=== PATIENT | female | born 1970 | race Caucasian/White ===

== ENCOUNTER 2020-04-20 15:23 | Outpatient (REF) | payer MEDICARE, MEDICAID, SELFPAY ==
[2020-04-20 17:25] LABS: Basophils Percent Auto 0.6 % (0-2); Eosinophils Absolute Auto 0.1 X10*3/uL (0.0-0.4); Eosinophils Percent Auto 0.9 % (0-4); Hematocrit 38.5 % (37-47); Hemoglobin 12.6 g/dl (12.0-16.0); Imm Gran Abs Auto 0.02 X10*3/uL (0.00-0.03); Imm Gran Pct Auto 0.3 % (0.0-0.4); Lymphocytes Absolute Auto 1.5 X10*3/uL (1.2-4.9); Lymphocytes Percent Auto 22.8 % (20-40); MANUAL DIFF FLAG NO; Mean Corpuscular HGB Conc 32.7 g/dl (31.0-35.0); Mean Corpuscular Hemoglobin 30.7 pg (27.0-33.0); Mean Corpuscular Volume 93.7 fL (80-98); Mean Platelet Volume 10.2 fL (9.4-12.3); Monocytes Absolute Auto 0.5 X10*3/uL (0.1-1.2); Monocytes Percent Auto 8.3 % (2-11); Neutrophils Absolute Auto 4.3 X10*3/uL (2.0-8.3); Neutrophils Percent Auto 67.1 % (45-73); Platelet Count 295 X10*3/uL (160-400); Red Blood Count 4.11 X10*6/uL (4.20-5.50); Red Cell Distribution Width 12.6 % (11.0-16.0); White Blood Count 6.4 X10*3/uL (4.8-10.8)
[2020-04-20 18:00] LABS: Alanine Aminotransferase 20 U/L (0-31); Albumin Level 4.2 g/dL (3.5-5.0); Alkaline Phosphatase 86 U/L (39-117); Anion Gap 12 (12-20); Aspartate Amino Transferase 14 U/L (5-31); Bilirubin Total 0.5 mg/dL (0.0-1.0); Blood Urea Nitrogen 16 mg/dL (9-16); Calcium 9.3 mg/dL (8.4-10.2); Carbon Dioxide 28 mmol/L (22-29); Chloride 104 mmol/L (96-108); Cholesterol 164 mg/dL; Estimated Glomerular Filt Rate > 60; Glucose Random 82 mg/dL (60-115); Potassium 4.2 mmol/l (3.3-5.1); Sodium 140 mmol/L (135-145); Total Protein 7.2 g/dL (6.5-8.0)
[2020-04-20 18:21] LABS: Thyroid Stimulating Hormone 1.39 uIU/mL (0.32-4.0); Vitamin D 25-OH Total 31.5 ng/mL (>30)
[2020-04-20 18:30] LABS: Vitamin B12 427 pg/mL (200-900)
== END 2020-04-20 15:24 | disposition home or self-care (01) ==
LOC: HO.LAB 15:23
PROVIDERS: PCP Internal Medicine; Visit Provider Internal Medicine
DX: E28.2 Polycystic ovarian syndrome (principal); E03.9 Hypothyroidism, unspecified; R25.2 Cramp and spasm
CPT/HCPCS: 36415; 80053; 82306; 82465; 82607; 84439; 84443; 85025

== ENCOUNTER 2020-07-19 13:07 | Outpatient (REF) | payer MEDICARE, MEDICAID, SELFPAY ==
[2020-07-19 14:08] LABS: MANUAL DIFF FLAG NO
[2020-07-19 14:14] LABS: Basophils Percent Auto 0.7 % (0-2); Eosinophils Percent Auto 0.7 % (0-4); Hematocrit 38.2 % (37-47); Hemoglobin 12.9 g/dl (12.0-16.0); Imm Gran Abs Auto 0.02 X10*3/uL (0.00-0.03); Imm Gran Pct Auto 0.4 % (0.0-0.4); Lymphocytes Absolute Auto 1.1 X10*3/uL (1.2-4.9); Lymphocytes Percent Auto 19.7 % (20-40); Mean Corpuscular HGB Conc 33.8 g/dl (31.0-35.0); Mean Corpuscular Hemoglobin 31.4 pg (27.0-33.0); Mean Corpuscular Volume 92.9 fL (80-98); Mean Platelet Volume 10.2 fL (9.4-12.3); Monocytes Absolute Auto 0.4 X10*3/uL (0.1-1.2); Monocytes Percent Auto 6.8 % (2-11); Neutrophils Absolute Auto 3.9 X10*3/uL (2.0-8.3); Neutrophils Percent Auto 71.7 % (45-73); Platelet Count 279 X10*3/uL (160-400); Red Blood Count 4.11 X10*6/uL (4.20-5.50); Red Cell Distribution Width 12.6 % (11.0-16.0); White Blood Count 5.4 X10*3/uL (4.8-10.8)
[2020-07-19 14:40] LABS: Alanine Aminotransferase 17 U/L (0-31); Albumin Level 4.1 g/dL (3.5-5.0); Alkaline Phosphatase 71 U/L (39-117); Anion Gap 13 (12-20); Aspartate Amino Transferase 15 U/L (5-31); Bilirubin Total 0.4 mg/dL (0.0-1.0); Blood Urea Nitrogen 16 mg/dL (9-16); Calcium 8.9 mg/dL (8.4-10.2); Carbon Dioxide 26 mmol/L (22-29); Chloride 102 mmol/L (96-108); Estimated Glomerular Filt Rate > 60; Glucose Random 89 mg/dL (60-115); Potassium 4.4 mmol/L (3.3-5.1); Sodium 137 mmol/L (135-145)
[2020-07-19 14:53] LABS: Free T4 (Free Thyroxine) 0.92 ng/dL (0.71-1.85); Thyroid Stimulating Hormone 2.09 uIU/mL (0.32-4.0)
== END 2020-07-19 13:08 | disposition home or self-care (01) ==
LOC: HO.10HDL 13:07
PROVIDERS: Visit Provider Internal Medicine
DX: E28.2 Polycystic ovarian syndrome (principal); E03.9 Hypothyroidism, unspecified; R63.5 Abnormal weight gain
CPT/HCPCS: 36415; 80053; 84439; 84443; 85025

== ENCOUNTER 2020-11-16 12:52 | Outpatient (REF) | payer MEDICARE, MEDICAID, SELFPAY ==
[2020-11-16 13:41] LABS: MANUAL DIFF FLAG NO
[2020-11-16 13:59] LABS: Basophils Percent Auto 0.6 % (0-2); Eosinophils Absolute Auto 0.1 X10*3/uL (0.0-0.4); Eosinophils Percent Auto 0.8 % (0-4); Hematocrit 39.1 % (37-47); Hemoglobin 12.7 g/dl (12.0-16.0); Imm Gran Abs Auto 0.02 X10*3/uL (0.00-0.03); Imm Gran Pct Auto 0.3 % (0.0-0.4); Lymphocytes Absolute Auto 1.5 X10*3/uL (1.2-4.9); Lymphocytes Percent Auto 23.3 % (20-40); Mean Corpuscular HGB Conc 32.5 g/dl (31.0-35.0); Mean Corpuscular Hemoglobin 30.3 pg (27.0-33.0); Mean Corpuscular Volume 93.3 fL (80-98); Mean Platelet Volume 10.1 fL (9.4-12.3); Monocytes Absolute Auto 0.5 X10*3/uL (0.1-1.2); Monocytes Percent Auto 7.5 % (2-11); Neutrophils Absolute Auto 4.2 X10*3/uL (2.0-8.3); Neutrophils Percent Auto 67.5 % (45-73); Platelet Count 295 X10*3/uL (160-400); Red Blood Count 4.19 X10*6/uL (4.20-5.50); Red Cell Distribution Width 12.8 % (11.0-16.0); White Blood Count 6.3 X10*3/uL (4.8-10.8)
[2020-11-16 14:35] LABS: Alanine Aminotransferase 29 U/L (0-31); Albumin Level 4.1 g/dL (3.5-5.0); Alkaline Phosphatase 77 U/L (39-117); Anion Gap 12 (12-20); Aspartate Amino Transferase 25 U/L (5-31); Bilirubin Total 0.5 mg/dL (0.0-1.0); Blood Urea Nitrogen 13 mg/dL (9-16); Calcium 9.6 mg/dL (8.4-10.2); Carbon Dioxide 25 mmol/L (22-29); Chloride 106 mmol/L (96-108); Estimated Glomerular Filt Rate > 60; Glucose Random 90 mg/dL (60-115); Potassium 4.4 mmol/L (3.3-5.1); Sodium 139 mmol/L (135-145); Total Protein 7.2 g/dL (6.5-8.0)
[2020-11-16 14:42] LABS: Free T4 (Free Thyroxine) 1.02 ng/dL (0.71-1.85)
== END 2020-11-16 12:53 | disposition home or self-care (01) ==
LOC: HO.10HDL 12:52
PROVIDERS: PCP Internal Medicine; Visit Provider Internal Medicine
DX: R63.5 Abnormal weight gain (principal); E03.9 Hypothyroidism, unspecified; E28.2 Polycystic ovarian syndrome
CPT/HCPCS: 36415; 80053; 84439; 84443; 85025

== ENCOUNTER 2021-06-06 12:57 | Outpatient (REF) | payer MEDICARE, MEDICAID, SELFPAY ==
[2021-06-06 13:49] LABS: MANUAL DIFF FLAG NO
[2021-06-06 13:57] LABS: Basophils Percent Auto 0.6 % (0-2); Eosinophils Percent Auto 0.6 % (0-4); Hematocrit 38.4 % (37.0-47.0); Hemoglobin 12.3 g/dl (12.0-16.0); Imm Gran Abs Auto 0.03 X10*3/uL (0.00-0.03); Imm Gran Pct Auto 0.4 % (0.0-0.4); Lymphocytes Absolute Auto 1.1 X10*3/uL (1.2-4.9); Lymphocytes Percent Auto 16.5 % (20-40); Mean Corpuscular Hemoglobin 29.7 pg (27.0-33.0); Mean Corpuscular Volume 92.8 fL (80.0-98.0); Mean Platelet Volume 10.1 fL (9.4-12.3); Monocytes Absolute Auto 0.5 X10*3/uL (0.1-1.2); Monocytes Percent Auto 7.5 % (2-11); Neutrophils Absolute Auto 5.1 x10*3/uL (2.0-8.3); Neutrophils Percent Auto 74.4 % (45-73); Platelet Count 298 X10*3/uL (160-400); Red Blood Count 4.14 X10*6/uL (4.20-5.50); Red Cell Distribution Width 12.4 % (11.0-16.0); White Blood Count 6.8 X10*3/uL (4.8-10.8)
[2021-06-06 14:15] LABS: Estimated Average Glucose 100 mg/dL; Hemoglobin A1c % 5.1 %
[2021-06-06 14:28] LABS: Alanine Aminotransferase 10 U/L (0-31); Albumin Level 3.9 g/dL (3.5-5.0); Alkaline Phosphatase 77 U/L (39-117); Anion Gap 11 (12-20); Aspartate Amino Transferase 14 U/L (5-31); Bilirubin Total 0.5 mg/dL (0.0-1.0); Blood Urea Nitrogen 13 mg/dL (9-16); Calcium 9.4 mg/dL (8.4-10.2); Carbon Dioxide 28 mmol/L (22-29); Chloride 103 mmol/L (96-108); Cholesterol 185 mg/dL; Estimated Glomerular Filt Rate > 60; Glucose Random 87 mg/dL (60-115); Potassium 4.1 mmol/L (3.3-5.1); Sodium 138 mmol/L (135-145); Total Protein 6.9 g/dL (6.5-8.0)
[2021-06-06 14:39] LABS: Free T4 (Free Thyroxine) 0.91 ng/dL (0.71-1.85); Thyroid Stimulating Hormone 2.24 uIU/mL (0.32-4.0); Vitamin D 25-OH Total 24.4 ng/mL (>30)
== END 2021-06-06 12:58 | disposition home or self-care (01) ==
LOC: HO.10HDL 12:57
PROVIDERS: Visit Provider Internal Medicine
DX: E03.9 Hypothyroidism, unspecified (principal); E28.2 Polycystic ovarian syndrome; G80.9 Cerebral palsy, unspecified
CPT/HCPCS: 36415; 80053; 82306; 82465; 83036; 84439; 84443; 85025

== ENCOUNTER 2022-01-25 13:43 | Outpatient (REF) | payer MEDICARE, MEDICAID, SELFPAY ==
[2022-01-25 14:02] LABS: MANUAL DIFF FLAG NO
[2022-01-25 14:24] LABS: Basophils Percent Auto 0.5 % (0-2); Eosinophils Absolute Auto 0.1 X10*3/uL (0.0-0.4); Hematocrit 38.8 % (37.0-47.0); Imm Gran Abs Auto 0.02 X10*3/uL (0.00-0.03); Imm Gran Pct Auto 0.3 % (0.0-0.4); Lymphocytes Absolute Auto 1.5 X10*3/uL (1.2-4.9); Lymphocytes Percent Auto 24.7 % (20-40); Mean Corpuscular HGB Conc 33.5 g/dl (31.0-35.0); Mean Corpuscular Hemoglobin 30.6 pg (27.0-33.0); Mean Corpuscular Volume 91.3 fL (80.0-98.0); Mean Platelet Volume 10.1 fL (9.4-12.3); Monocytes Absolute Auto 0.4 X10*3/uL (0.1-1.2); Monocytes Percent Auto 6.9 % (2-11); Neutrophils Percent Auto 66.6 % (45-73); Platelet Count 312 X10*3/uL (160-400); Red Blood Count 4.25 X10*6/uL (4.20-5.50); Red Cell Distribution Width 12.8 % (11.0-16.0); White Blood Count 5.9 X10*3/uL (4.8-10.8)
[2022-01-25 14:38] LABS: Alanine Aminotransferase 10 U/L (0-31); Albumin Level 4.2 g/dL (3.5-5.0); Alkaline Phosphatase 77 U/L (39-117); Anion Gap 14 (12-20); Aspartate Amino Transferase 13 U/L (5-31); Bilirubin Total 0.4 mg/dL (0.0-1.0); Blood Urea Nitrogen 15 mg/dL (9-16); Calcium 9.1 mg/dL (8.4-10.2); Carbon Dioxide 25 mmol/L (22-29); Chloride 104 mmol/L (96-108); Cholesterol 194 mg/dL; Estimated Glomerular Filt Rate > 60; Glucose Fasting 100 mg/dL (60-99); Potassium 3.9 mmol/L (3.3-5.1); Sodium 139 mmol/L (135-145); Total Protein 7.3 g/dL (6.5-8.0)
[2022-01-25 14:55] LABS: Free T4 (Free Thyroxine) 1.12 ng/dL (0.71-1.85); Thyroid Stimulating Hormone 2.22 uIU/mL (0.32-4.0)
== END 2022-01-25 13:44 | disposition home or self-care (01) ==
LOC: HO.LAB 13:43
PROVIDERS: PCP Internal Medicine; Visit Provider Internal Medicine
DX: E28.2 Polycystic ovarian syndrome (principal); E03.9 Hypothyroidism, unspecified; E55.9 Vitamin D deficiency, unspecified; G80.9 Cerebral palsy, unspecified
CPT/HCPCS: 36415; 80053; 82465; 84439; 84443; 85025

== ENCOUNTER 2022-06-26 12:33 | Outpatient (REF) | payer MEDICARE, MEDICAID, SELFPAY ==
[2022-06-26 13:43] LABS: MANUAL DIFF FLAG NO
[2022-06-26 13:47] LABS: Basophils Absolute Auto 0.1 X10*3/uL (0.0-0.2); Basophils Percent Auto 0.7 % (0-2); Eosinophils Absolute Auto 0.1 X10*3/uL (0.0-0.4); Eosinophils Percent Auto 1.7 % (0-4); Hematocrit 36.5 % (37.0-47.0); Imm Gran Abs Auto 0.06 X10*3/uL (0.00-0.03); Imm Gran Pct Auto 0.8 % (0.0-0.4); Lymphocytes Absolute Auto 1.7 X10*3/uL (1.2-4.9); Lymphocytes Percent Auto 23.4 % (20-40); Mean Corpuscular HGB Conc 32.9 g/dl (31.0-35.0); Mean Corpuscular Hemoglobin 30.6 pg (27.0-33.0); Mean Corpuscular Volume 93.1 fL (80.0-98.0); Mean Platelet Volume 9.8 fL (9.4-12.3); Monocytes Absolute Auto 0.6 X10*3/uL (0.1-1.2); Monocytes Percent Auto 7.9 % (2-11); Neutrophils Absolute Auto 4.8 x10*3/uL (2.0-8.3); Neutrophils Percent Auto 65.5 % (45-73); Platelet Count 331 X10*3/uL (160-400); Red Blood Count 3.92 X10*6/uL (4.20-5.50); White Blood Count 7.3 X10*3/uL (4.8-10.8)
[2022-06-26 14:15] LABS: Alanine Aminotransferase 17 U/L (0-31); Albumin Level 3.6 g/dL (3.5-5.0); Alkaline Phosphatase 76 U/L (39-117); Anion Gap 9 (12-20); Aspartate Amino Transferase 20 U/L (5-31); Bilirubin Total 0.4 mg/dL (0.0-1.0); Blood Urea Nitrogen 10 mg/dL (9-16); Calcium 8.7 mg/dL (8.4-10.2); Carbon Dioxide 29 mmol/L (22-29); Chloride 105 mmol/L (96-108); Estimated Glomerular Filt Rate > 60; Glucose Random 102 mg/dL (60-115); Potassium 4.1 mmol/L (3.3-5.1); Sodium 139 mmol/L (135-145); Total Protein 6.3 g/dL (6.5-8.0)
[2022-06-26 14:30] LABS: Free T4 (Free Thyroxine) 0.99 ng/dL (0.71-1.85); Thyroid Stimulating Hormone 1.94 uIU/mL (0.32-4.0); Vitamin D 25-OH Total 24.7 ng/mL (>30)
== END 2022-06-26 12:34 | disposition home or self-care (01) ==
LOC: HO.10HDL 12:33
PROVIDERS: Visit Provider Internal Medicine
DX: E28.2 Polycystic ovarian syndrome (principal); E03.9 Hypothyroidism, unspecified; E55.9 Vitamin D deficiency, unspecified; R21 Rash and other nonspecific skin eruption; F31.9 Bipolar disorder, unspecified
CPT/HCPCS: 36415; 80053; 82306; 84439; 84443; 85025

== ENCOUNTER 2023-12-02 10:19 | Outpatient (REF) | payer MEDICARE, MEDICAID, SELFPAY ==
[2023-12-02 10:41] LABS: MANUAL DIFF FLAG NO
[2023-12-02 11:07] LABS: Basophils Absolute Auto 0.1 X10*3/uL (0.0-0.2); Eosinophils Absolute Auto 0.1 X10*3/uL (0.0-0.4); Eosinophils Percent Auto 1.6 % (0-4); Hematocrit 37.8 % (37.0-47.0); Hemoglobin 12.6 g/dl (12.0-16.0); Imm Gran Abs Auto 0.03 X10*3/uL (0.00-0.03); Imm Gran Pct Auto 0.5 % (0.0-0.4); Lymphocytes Absolute Auto 1.7 X10*3/uL (1.2-4.9); Lymphocytes Percent Auto 27.4 % (20-40); Mean Corpuscular HGB Conc 33.3 g/dl (31.0-35.0); Mean Corpuscular Hemoglobin 29.7 pg (27.0-33.0); Mean Corpuscular Volume 89.2 fL (80.0-98.0); Mean Platelet Volume 9.8 fL (9.4-12.3); Monocytes Absolute Auto 0.4 X10*3/uL (0.1-1.2); Monocytes Percent Auto 6.8 % (2-11); Neutrophils Absolute Auto 3.9 x10*3/uL (2.0-8.3); Neutrophils Percent Auto 62.7 % (45-73); Platelet Count 360 X10*3/uL (160-400); Red Blood Count 4.24 X10*6/uL (4.20-5.50); Red Cell Distribution Width 13.6 % (11.0-16.0); White Blood Count 6.2 X10*3/uL (4.8-10.8)
[2023-12-02 12:35] LABS: Alanine Aminotransferase 15 U/L (0-31); Alkaline Phosphatase 96 U/L (39-117); Anion Gap 11 (12-20); Aspartate Amino Transferase 13 U/L (5-31); Bilirubin Total 0.4 mg/dL (0.0-1.0); Blood Urea Nitrogen 12 mg/dL (9-16); Calcium 9.4 mg/dL (8.4-10.2); Carbon Dioxide 27 mmol/L (22-29); Chloride 105 mmol/L (96-108); Cholesterol 194 mg/dL (<200); Estimated Glomerular Filt Rate > 60; Glucose Random 85 mg/dL (60-115); Potassium 3.9 mmol/L (3.3-5.1); Sodium 139 mmol/L (135-145); Total Protein 7.6 g/dL (6.5-8.0)
[2023-12-02 12:39] LABS: Free T4 (Free Thyroxine) 0.97 ng/dL (0.71-1.85); Thyroid Stimulating Hormone 2.59 uIU/mL (0.32-4.0); Vitamin D 25-OH Total 46.7 ng/mL (>30)
== END 2023-12-02 10:20 | disposition home or self-care (01) ==
LOC: HO.LAB 10:19
PROVIDERS: PCP Internal Medicine; Visit Provider Internal Medicine
DX: E55.9 Vitamin D deficiency, unspecified (principal); E03.9 Hypothyroidism, unspecified; E28.2 Polycystic ovarian syndrome
CPT/HCPCS: 36415; 80053; 82306; 82465; 84439; 84443; 85025

== ENCOUNTER 2024-02-10 10:50 | Outpatient (REF) | payer MEDICARE, MEDICAID, SELFPAY | END 2024-02-10 10:51 | disposition home or self-care (01) | LOC: HO.MAMMO 10:50 | PROVIDERS: PCP Internal Medicine; Visit Provider Internal Medicine | DX: Z13.89 Encounter for screening for other disorder (principal) ==

== ENCOUNTER 2024-03-24 12:46 | Outpatient (REF) | payer MEDICARE, MEDICAID, SELFPAY ==
--- NOTE | ~2024-03-24 | XR_ITS ---
EXAMINATION: XRAY ORBITS CLINICAL INFORMATION: PRE-MRI , UNKNOWN SURGERY COMPARISON: None. TECHNIQUE: 2 views of the orbits FINDINGS: No radiopaque foreign body in the orbits. NO fracture XR/XR pre mri screening IMPRESSION: No radiopaque foreign body in the orbits. Electronically signed by: Pop Smith MD 03/25/2024 01:06 PM [facility] [place]
== END 2024-03-24 12:47 | disposition home or self-care (01) ==
LOC: HO.MRI 12:46
PROVIDERS: PCP Internal Medicine; Visit Provider Psychiatry & Neurology Neurology
DX: G83.89 Other specified paralytic syndromes (principal)
CPT/HCPCS: 70551; 72141

== ENCOUNTER 2024-03-25 15:33 | Outpatient (REF) | payer MEDICARE, MEDICAID, SELFPAY ==
--- NOTE | ~2024-03-25 | MM_ITS ---
EXAMINATION: MM SCREENING DIGITAL BREAST TOMOSYNTHESIS, BILATERAL CLINICAL INFORMATION: Screening. Asymptomatic. COMPARISON: Mammography: Baseline. TECHNIQUE: Digital breast mammography with tomosynthesis is performed in both the craniocaudal and mediolateral oblique views along with computer-aided detection (CAD). FINDINGS: There are scattered areas of fibroglandular density (ACR BI-RADS breast composition Category b). There are no significant masses, abnormal calcifications, or other abnormalities. MM/MM tomosynthesis screening BI IMPRESSION: No mammographic evidence of malignancy. ASSESSMENT: BI-RADS BI-RADS 1 - Negative RECOMMENDATION: Routine annual mammography screening. 1 year F/U This examination should not preclude the clinical evaluation of a suspicious palpable abnormality. This patient's information was entered into a reminder system with a target due date for their next mammogram. Electronically signed by: Windy Richards DO 03/31/2024 03:32 PM [facility] [place]
== END 2024-03-25 15:34 | disposition home or self-care (01) ==
LOC: HO.MAMMO 15:33
PROVIDERS: PCP Internal Medicine; Visit Provider Internal Medicine
DX: Z12.31 Encounter for screening mammogram for malignant neoplasm of breast (principal)
CPT/HCPCS: 77063; 77067

== ENCOUNTER → 2024-03-25 16:15 | Outpatient (BNV) | payer MEDICARE, MEDICAID, SELFPAY | PROVIDERS: PCP Internal Medicine; Visit Provider Internal Medicine | DX: Z12.31 Encounter for screening mammogram for malignant neoplasm of breast (principal) | CPT/HCPCS: 77063; 77067 ==

== ENCOUNTER 2024-08-25 08:43 | Outpatient (AMB) | payer MEDICARE, MEDICAID, SELFPAY ==
--- NOTE | 2024-08-25 08:42 | A.OFFPC_ITS ---
Vital Signs 08/25/24 09:03 Height 4 ft 10 in Weight 76.204 kg BMI 35.1 BP 112/64 Respiration 14 Pulse 85 Pulse Source Pulse Oximeter Temp 97.9 F Temp Source Temporal Artery Scan Pulse Oximetry (%) 97 Oxygen Delivery Method Room Air Intake Visit Reasons: Routine Licensed Clinical Social Worker Required: No Accompanied by: Other Relationship Allergies No Known Allergies Allergy (Verified 08/25/24 08:52) Tobacco use date assessed: 08/25/24 Dental Screening Dental Screen Date: 08/25/24 Did you have a dental visit in the last 12 months?: Yes Did you have a dental problem in the last 6 months where you did not have access to dental care?: No Was dental information given to patient?: Patient has dentist HPI HPI Comments History of Present Illness Details 53-year-old female with history of schiz oaffective disorder, bipolar type, PCOS, cerebral palsy with spasticity, mild intellectual disability presents to the office today with her aide, Chloe, for routine follow-up. She has complaints today about pain in the toes related to overgrown toenails. She has seen a back tender cloth printing in the last 6 months who did cut her toenails but has not returned for follow-up. Also noted is an ulceration of the right 2nd toe which she reports is longstanding. No foul odor or active drainage. She has been having difficulty with the upright walker she has been using due to speed and difficulty turning when brakes engaged. Does well with regular rolling walker. She dislikes the forearm crutches. She also wears a brace on the lower legs. She is following with Psychiatry, Dr. Parry, and denies any adverse effects with her medication except for hypersomnolence which her psychiatrist does not feel is related to her medications. Her aide feels the sleepiness may be related to boredom at her day program as this is where she has been noted to be falling asleep. She reports sleeping well at night. No significant snoring, no apnea. Mammogram up-to-date. Due for colonoscopy colonoscopy Review of Systems - Constitutional: Reports fatigue and sl eeping during the day program; denies weight loss. - Musculoskeletal: Reports pain in the s mall toe with standing. - Gastrointestinal: Reports constipation and stool color changes to yellowish-brown. - Neurological: Reports daytime sleepine ss; denies severe snoring. - Dermatological: Denies signs of infect ion at the site of toenail ulceration. Vital signs Reviewed Health Maintenance - Routine lab tests for monitoring fatig ue and sleep disturbances. - Referral and scheduling for colonoscop y. Physical Exam Constitutional: Awake and alert, no apparent distress Heart: RRR, S1S2, no murmurs, no edema Lungs: CTA bilaterally, no wheezing Extremities: No calf tenderness, small ulceration on the medial aspect R 2nd toe with mild associated swelling of toe no foul odor or drainage Skin: Warm and dry Neuro: Alert and oriented x 3, reports of increased sleepiness during the day program, possibly due to boredom or medication effects Assessment and Plan Patient was informed and verbally consented to the use of an ambient scribe for clinic note documentation during this visit. See below for plan details Discussion Notes During the visit, I discussed with the patient her ongoing issues related to an ingrown toenail and associated ulceration. Emphasis was placed on managing cleanliness and coordinating follow-up podiatric care. For her fatigue, the discussion focused on ruling out any underlying biochemical imbalances, with shared insights from her psychiatrist regarding her medication's impact being minimal. A comprehensive review of the colonoscopy procedure was discussed, reassuring her about the anesthesia and addressing preparation concerns. The patient expressed her preference for a regular walker over prior types, improving her stability, which aligns with therapy recommendations, reinforcing adherence to safer practices at home. Patient Instructions - Continue regular visits to the podiatr ist for toenail management. - Keep the ulceration clean and consider utilizing offloading bandages. - Follow up with lab tests within the ne xt three days, omitting Biotin in the interim. - Continue monitoring stool color and co nsistency, reaching out if unusual ch anges persist. - Await gastrointestinal department's ca ll for the colonoscopy appointment. - Maintain current walker usage for safe ty. - Monitor and report any sleep disturban marce and attempt regular sleep hygiene practices. - Follow pharmacy directives for ordered PRN medications and confirm receipt. [facility] Medical History Vitamin D deficiency Schizophrenia Spasticity Cerebral palsy Bipolar disorder PCOS (polycystic ovarian syndrome) Hypothyroidism Family History Mother Breast cancer Father Heart attack Maternal Grandmother Breast cancer Paternal Grandmother Breast cancer Social History (Updated 08/25/24 @ 09:03 by EDIN Garcia) Housing: House Alcohol intake: current Comment: special occasions Patient Tobacco Use Status: Former Tobacco user service: No Current occupational status: disabled Cognitive needs: Yes (walker, leg brace, orthotic shoes,) Hearing needs: No Vision needs: No Questionnaire PHQ-9 Over the last 2 weeks, how often have you been bothered by any of the following problems? 1. Little interest or pleasure in doing things: not at all 2. Feeling down, depressed, or hopeless: not at all 3. Trouble falling or staying asleep, or sleeping too much: not at all 4. Feeling tired or having little energy: not at all 5. Poor appetite or overeating: not at all 6. Feeling bad about yourself - or that you are a failure or have let yourself or your family down: not at all 7. Trouble concentrating on things, such as reading the newspaper or watching television: not at all 8. Moving or speaking so slowly that other people could have noticed. Or the opposite - being so fidgety or restless that you have been moving around a lot more than usual: not at all 9. Thoughts that you would be better off or of hurting yourself in some way: not at all Total score: 0 Source: Developed by Drs. Pop Joshi, Yenni Jackson, Jason Smith and colleagues, with an educational joycelyn from [employer]. Thrive Questionnaire Date Thrive assessed: 08/25/24 I am a: Patient What is your living situation today?: I have a steady place to live Within the past 12 months, did the food you bought not last and you didn't have the money to get more?: Never true Within the past 12 months, did you worry whether your food would run out before you got money to buy more?: Never true Do you have trouble paying for medicines?: No Do you have trouble getting transportation to medical appointments?: No Do you have trouble paying your heating and electricity bill?: No Do you have trouble taking care of your child, family member or friend?: No Do you have trouble with day-to-day activities such as bathing, preparing meals, shopping, managing finances, etc.?: No Are you currently unemployed and looking for a job?: No Are you interested in more education?: No Please select the resources that you would like help with: None THRIVE Score: 0 AUDIT C Alcohol Use Questionnaire (AUDIT-C) 1. How often do you have a drink containing alcohol?: Monthly or less (special occasions) Total Score: 1 RADHA-7 AMB Questionnaire RADHA-7 Date RADHA - 7 assessed: 08/25/24 Feeling nervous, anxious, or on edge: 0 = Not at all Not being able to stop or control worryin = Not at all Worrying too much about different things: 0 = Not at all Trouble relaxin = Not at all Being so restless that it is hard to sit still: 0 = Not at all Becoming easily annoyed or irritable: 0 = Not at all Feeling afraid as if something awful might happen: 0 = Not at all Total RADHA-7 score (0-4 normal; 5-9 mild; 10-14 moderate; 15-21 severe): 0 Source: Developed by Drs. Pop Joshi, Yenni Jackson, Jason Smith and colleagues, with an educational joycelyn from [employer]. Physical exam (Primary Care) Vital Signs: Last Vital Signs Temp 97.9 F 08/25/24 09:03 Pulse 85 08/25/24 09:03 Resp 14 08/25/24 09:03 BP 112/64 08/25/24 09:03 Pulse Ox 97 08/25/24 09:03 Oxygen Delivery Method Room Air 08/25/24 09:03 BMI result Body Mass Index 35.1 Tobacco/Smoking Status: Tobacco use Status Tobacco use date assessed 08/25/24 08/25/24 08:45 Patient Tobacco Use Status Former Tobacco user 08/25/24 09:03 PHQ-9: PHQ-9 Score PHQ-9: Total score 0 08/25/24 09:29 Thrive Assessment: Date of Thrive Assessment Date Thrive assessed 08/25/24 08/25/24 08:45 Coding Level of Care Code New Pt Level 4 (78792) Complex EM visit Add On G2211 Diagnoses Hypothyroidism E03.9 Bipolar disorder F31.9 Cerebral palsy G80.9 Spasticity R25.2 Schizophrenia F20.9 Vitamin D deficiency E55.9 Toe ulcer, right L97.519 Hypersomnolence G47.10 Assessment & Plan Assessment & Plan (1) Hypothyroidism: Code(s): E03.9 - Hypothyroidism, unspecified Category: Medical Plan: TSH ordered. Continue levothyroxine at current dose, dose to be adjusted pending results of study. Recommend holding biotin for 3 days prior to having labs performed (2) Bipolar disorder: Code(s): F31.9 - Bipolar disorder, unspecified Category: Medical Plan: Stable. Continue following with Dr. Parry in Psychiatry. Continue paroxetine, risperidone, clonidine (3) Cerebral palsy: Code(s): G80.9 - Cerebral palsy, unspecified Category: Medical Plan: With spasticity. Continue with braces in the lower extremities bilaterally. Continue baclofen for spasticity. Use rolling walker rather than upright walker for gait assistance instability. Will update prescription. (4) Spasticity: Code(s): R25.2 - Cramp and spasm Category: Medical Plan: See above (5) Schizophrenia: Code(s): F20.9 - Schizophrenia, unspecified Category: Medical Plan: See above. Stable (6) Vitamin D deficiency: Code(s): E55.9 - Vitamin D deficiency, unspecified Category: Medical Plan: Vitamin-D level ordered. Continue vitamin-D supplementation. (7) Toe ulcer, right: Code(s): L97.519 - Non-pressure chronic ulcer of other part of right foot with unspecified severity Category: Medical Plan: Stage II ulceration of the medial aspect of the right 2nd toe. No evidence of infection. Recommend offloading bandages between the toes and good hygiene practices. Monitor for signs of infection. [facility]. Continue following with Podiatry (8) Hypersomnolence: Code(s): G47.10 - Hypersomnia, unspecified Category: Medical Plan: Will check labs to evaluate for chemical/metabolic abnormality that could be contributing to hypersomnolence. Should also follow-up with psychiatry as some of her medications could potentially cause hypersomnolence such as risperidone, though less likely than other medications in the same class. Recommended becoming more of an active participant in her day program as increased engagement may also help with attention and boredom. Plan Follow-up in 4 months. Labs to be completed in 3 days- hold biotin x 3 days prior to lab draw Will refer for wound care for theulceration on the R 2nd toe. Follow up with podiatry Use standard walker Orders: Orders Basic Metabolic Panel Today Z12.11 - Encounter for screening for malignant neoplasm of colon, Z13.1 - Encounter for screening for diabetes mellitus, Z13.220 - Encounter for screening for lipoid disorders Lipid Panel Today Z12.11 - Encounter for screening for malignant neoplasm of colon, Z13.1 - Encounter for screening for diabetes mellitus, Z13.220 - Encounter for screening for lipoid disorders Vitamin D 25-OH Total Today E55.9 - Vitamin D deficiency, unspecified Hemoglobin A1c Today Z12.11 - Encounter for screening for malignant neoplasm of colon, Z13.1 - Encounter for screening for diabetes mellitus, Z13.220 - Encounter for screening for lipoid disorders TSH reflex Free T4 Today Z12.11 - Encounter for screening for malignant neoplasm of colon, Z13.1 - Encounter for screening for diabetes mellitus, Z13.220 - Encounter for screening for lipoid disorders Complete Blood Count Auto Diff Today Z12.11 - Encounter for screening for malignant neoplasm of colon, Z13.1 - Encounter for screening for diabetes mellitus, Z13.220 - Encounter for screening for lipoid disorders Vitamin B12 Today G47.10 - Hypersomnia, unspecified Referrals Gastroenterology Referral Z12.11 - Encounter for screening for malignant neoplasm of colon Wound Care Referral L97.519 - Non-pressure chronic ulcer of other part of right foot with unspecified severity Medications: Discontinued cholecalciferol (vitamin D3) Discontinued Reason: Duplicate 25 mcg PO DAILY 90 caps 3RF
[2024-08-25 09:03] VITALS: BP 112/64; PULSE 85; RESP 14; TEMP 36.6; O2SAT 97; BMI 35.1
== END 2024-08-25 09:30 | disposition home or self-care (01) ==
LOC: HO.HMCHD 08:44
PROVIDERS: PCP Physician Assistant; Visit Provider Physician Assistant
DX: E03.9 Hypothyroidism, unspecified (principal); F31.9 Bipolar disorder, unspecified; G80.9 Cerebral palsy, unspecified; R25.2 Cramp and spasm; F20.9 Schizophrenia, unspecified; E55.9 Vitamin D deficiency, unspecified; L97.519 Non-pressure chronic ulcer of other part of right foot with unspecified severity; G47.10 Hypersomnia, unspecified

== ENCOUNTER → 2024-08-25 08:43 | Outpatient (BNVA) | payer MEDICARE, MEDICAID, SELFPAY | PROVIDERS: PCP Physician Assistant; Visit Provider Physician Assistant | DX: E28.2 Polycystic ovarian syndrome (principal); F31.9 Bipolar disorder, unspecified; F20.9 Schizophrenia, unspecified; G80.1 Spastic diplegic cerebral palsy; E03.9 Hypothyroidism, unspecified; E55.9 Vitamin D deficiency, unspecified; L97.519 Non-pressure chronic ulcer of other part of right foot with unspecified severity; G47.10 Hypersomnia, unspecified | CPT/HCPCS: 96127; 99202 ==

== ENCOUNTER 2024-09-18 08:50 | Outpatient (REF) | payer MEDICARE, MEDICAID, SELFPAY ==
[2024-09-18 09:04] LABS: MANUAL DIFF FLAG NO
[2024-09-18 09:37] LABS: Basophils Absolute Auto 0.1 X10*3/uL (0.0-0.2); Basophils Percent Auto 0.9 % (0-2); Eosinophils Absolute Auto 0.1 X10*3/uL (0.0-0.4); Eosinophils Percent Auto 1.3 % (0-4); Hematocrit 39.1 % (37.0-47.0); Hemoglobin 12.8 g/dl (12.0-16.0); Imm Gran Abs Auto 0.02 X10*3/uL (0.00-0.03); Imm Gran Pct Auto 0.4 % (0.0-0.4); Lymphocytes Absolute Auto 1.1 X10*3/uL (1.2-4.9); Lymphocytes Percent Auto 19.4 % (20-40); Mean Corpuscular HGB Conc 32.7 g/dl (31.0-35.0); Mean Corpuscular Hemoglobin 29.3 pg (27.0-33.0); Mean Corpuscular Volume 89.5 fL (80.0-98.0); Mean Platelet Volume 9.6 fL (9.4-12.3); Monocytes Absolute Auto 0.4 X10*3/uL (0.1-1.2); Monocytes Percent Auto 7.9 % (2-11); Neutrophils Absolute Auto 3.9 x10*3/uL (2.0-8.3); Neutrophils Percent Auto 70.1 % (45-73); Platelet Count 308 X10*3/uL (160-400); Red Blood Count 4.37 X10*6/uL (4.20-5.50); Red Cell Distribution Width 13.2 % (11.0-16.0); White Blood Count 5.6 X10*3/uL (4.8-10.8)
[2024-09-18 09:50] LABS: Estimated Average Glucose 105 mg/dL; Hemoglobin A1c % 5.3 % (<6.0)
[2024-09-18 10:10] LABS: Anion Gap 13 (12-20); Blood Urea Nitrogen 13 mg/dL (9-16); Calcium 9.3 mg/dL (8.4-10.2); Carbon Dioxide 24 mmol/L (22-29); Chloride 106 mmol/L (96-108); Cholesterol 198 mg/dL (<200); Estimated Glomerular Filt Rate > 60; Glucose Random 92 mg/dL (60-115); HDL Cholesterol 57 mg/dL (>40); LDL Cholesterol Calculated 130 mg/dL (<100); Sodium 139 mmol/L (135-145); Triglycerides 55 mg/dL (<150)
[2024-09-18 10:17] LABS: TSH reflex Free T4 2.12 uIU/mL (0.32-4.0)
[2024-09-18 10:27] LABS: Vitamin B12 316 pg/mL (200-900)
== END 2024-09-18 08:51 | disposition home or self-care (01) ==
LOC: HO.LAB 08:50
PROVIDERS: PCP Physician Assistant; Visit Provider Physician Assistant
DX: Z13.220 Encounter for screening for lipoid disorders (principal); Z13.1 Encounter for screening for diabetes mellitus; Z12.11 Encounter for screening for malignant neoplasm of colon; E55.9 Vitamin D deficiency, unspecified; G47.10 Hypersomnia, unspecified; Z13.6 Encounter for screening for cardiovascular disorders
CPT/HCPCS: 36415; 80048; 80061; 82306; 82607; 83036; 84443; 85025

== ENCOUNTER 2024-11-30 12:53 | Outpatient (AMB) | payer MEDICARE, MEDICAID, SELFPAY ==
[2024-11-30 13:27] VITALS: BP 140/90; PULSE 68; O2SAT 98
--- NOTE | 2024-11-30 13:27 | A.OFFVIS_ITS ---
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 She falls asleep during day program will nap for minutes for 6months now. M-F 9am to 2:30 pm, adult day program. She really does not like being there. She has insomnia, goes to bed at 7pm and wakes up at 6:30am. She wakes up several times a night tossing and turning, lays in bed for minutes to hours. Mood is stable on risperidal and clonidine. Memory is stable, will forget instructions at bingo, repeats and needs redir ection. She needs help with all her ADLs, can dress herself and feed herself. She likes to swim and encouraged to start swimming to ease symptoms of spasticity. Denies falls ambulates with walker. ESS 20/ youth care worker - never came in- [facility]. Adult daycare - patient waited for her assistance. [facility] Medical History Vitamin D deficiency Schizophrenia Spasticity Cerebral palsy Bipolar disorder PCOS (polycystic ovarian syndrome) Hypothyroidism Family History Mother Breast cancer Father Heart attack Maternal Grandmother Breast cancer Paternal Grandmother Breast cancer Social History Housing: House Alcohol intake: current Comment: special occasions Patient Tobacco Use Status: Former Tobacco user service: No Current occupational status: disabled Cognitive needs: Yes (walker, leg brace, orthotic shoes,) Hearing needs: No Vision needs: No Physical Exam Vital Signs: Last Vital Signs Pulse 68 11/30/24 13:27 BP 140/90 H 11/30/24 13:27 Pulse Ox 98 11/30/24 13:27 Oxygen Delivery Method Room Air 11/30/24 13:27 Const General: cooperative, comfortable and no acute distress Nutritional Appearance: average body habitus Orientation/consciousness: patient oriented x3 Eyes Pupils: Equal, round and reactive pupils present Neck Neck: Yes full ROM Resp Effort & Inspection: normal respiratory effort and able to speak in complete sentences Neuro General: patient oriented x3 and moves all extremities Cranial nerves: Yes Facial sensation intact/muscles of mastication intact, Yes Equal, round and reactive pupils present, Yes Normal accommodation reflex present, Yes Normal facial strength present, Yes Midline tongue present, Yes Ability to bilaterally rotate head present and Yes Ability to bilaterally elevate shoulders present Gait exam (Neuro): Assisted gait required and Assistive device used Motor exam (neuro): Abnormal motor strength present and Abnormal muscle tone present Psych Appearance: well kempt Insight: Fair insight present (Psych) Judgement: Fair judgement present (Psych) Assessment & Plan Assessment & Plan (1) Hypersomnolence: Code(s): G47.10 - Hypersomnia, unspecified Category: Medical (2) Excessive daytime sleepiness: Code(s): G47.19 - Other hypersomnia Category: Medical Plan PSG to r/o hypersomnia. ESS is 23. Labs to r/o deficiencies. Will consider MSLT at next visit. f/u in 3 months Orders: Orders RT PSG in-lab sleep study 11/30/24 G47.10 - Hypersomnia, unspecified, G47.19 - Other hypersomnia Vitamin D 25-OH Total Today G47.19 - Other hypersomnia, R53.83 - Other fatigue Methylmalonic Acid Today G47.19 - Other hypersomnia, G47.9 - Sleep disorder, unspecified, R53.83 - Other fatigue Ferritin Today G47.19 - Other hypersomnia, R53.83 - Other fatigue Homocysteine Today G47.19 - Other hypersomnia, G47.9 - Sleep disorder, unspecified, R53.83 - Other fatigue Vitamin B12 and Folate Today G47.19 - Other hypersomnia, R53.83 - Other fatigue TSH reflex Free T4 Today G47.19 - Other hypersomnia, R53.83 - Other fatigue Magnesium Today G47.19 - Other hypersomnia, R53.83 - Other fatigue Patient Instructions: Sleep Hygiene provided: set a scheduled bedtime and wake time to help regulate the circadian rhythm and balance the release of pituitary hormones. Sleep in a dark room, temperatures below 68 degrees, and no devices n bed. Limit caffeinated products 6 hours prior to bed, and limit fluids 2-4 hours prior to bed. Gentle night yoga, diffusing essential oils, and playing soft music can be relaxing. Coding Level of Care Code New Pt Level 4 (25235) Diagnoses Hypersomnolence G47.10 Excessive daytime sleepiness G47.19 [place] Sleepiness Scale Questions Sitting and reading: high chance of dozing Watching TV: high chance of dozing Sitting inactive in a theater, movie etc.: high chance of dozing As a passenger in a car for an hour without break: moderate chance of dozing Lying down in the afternoon when circumstances permit: high chance of dozing Sitting and talking to someone: high chance of dozing Sitting quietly after lunch without alcohol: high chance of dozing In a car, while stopped for a few minutes in the traffic: high chance of dozing ESS < 10: normal, ESS > 12: pathologic: 23
== END 2024-11-30 14:49 | disposition home or self-care (01) ==
LOC: HO.HSMS 12:54
PROVIDERS: PCP Physician Assistant; Visit Provider Physician Assistant Medical
DX: G47.10 Hypersomnia, unspecified (principal); G47.19 Other hypersomnia
CPT/HCPCS: 99204

== ENCOUNTER → 2024-11-30 12:53 | Outpatient (BNVA) | payer MEDICARE, MEDICAID, SELFPAY | PROVIDERS: PCP Physician Assistant; Visit Provider Physician Assistant Medical | DX: G47.19 Other hypersomnia (principal); Z79.899 Other long term (current) drug therapy | CPT/HCPCS: 99202 ==

== ENCOUNTER 2024-12-23 09:49 | Outpatient (AMB) | payer MEDICARE, MEDICAID, SELFPAY ==
--- NOTE | 2024-12-23 10:04 | MHC.OFFWIV ---
Intake Vital Signs 12/23/24 10:07 Height 4 ft 10 in Weight 166 lb BMI 34.7 BP 110/68 Blood Pressure Location Rt brachial Position Sitting Pulse 84 Pulse Source Pulse Oximeter Temp 98.0 F Temp Source Oral Pulse Oximetry (%) 97 Oxygen Delivery Method Room Air Intake Visit Reasons: EP-lice clearance for day program Intake Note: pt presents with need for a lice clearance letter to return to day program Patient Tobacco Use Status: Former Tobacco user Allergies No Known Allergies Allergy (Verified 12/23/24 10:10) Do you need a note to return to daycare/school/sports/work: Yes HPI HPI Comments History of Present Illness Details History of Present Illness - The patient is a 54-year-old female presenting with concerns of a head lice infestation. - The patient reported acquiring lice from a program she attended. - Reports itching though she has an itchy scalp at baseline, this is different from her baseline. - She applied a lice treatment spray today, which was purchased [id number] from [employer], unclear as to the name of the product or active ingredient. - The treatment involved applying the spray and covering the hair with plastic for about half an hour, as per the instructions. - welfare worker with her did not see any lice or nits. Physical Exam General: Cooperative, healthy appearing, comfortable, no acute distress and well developed Orientation: Patient oriented x3 Limitations: No limitations Head: Normal to inspection, but patient reports recent lice treatment Ears: Hearing grossly normal bilaterally Nose: Normal External nose present Face and sinus: Normal facial exam Eyes: Appearance normal, both eyes and all related structures Neck: Normal visual inspection and Yes full ROM Respiratory: Normal respiratory effort and able to speak in complete sentences. Skin: No rashes or lesions noted, dandruff noted on scalp, a few lice noted at base of hair shaft on scalp on left temporal area Neuro: Patient oriented x3 Extremities: Normal to inspection [facility] Medical History Vitamin D deficiency Schizophrenia Spasticity Cerebral palsy Bipolar disorder PCOS (polycystic ovarian syndrome) Hypothyroidism Family History Mother Breast cancer Father Heart attack Maternal Grandmother Breast cancer Paternal Grandmother Breast cancer Social History Housing: House Alcohol intake: current Comment: special occasions Patient Tobacco Use Status: Former Tobacco user service: No Current occupational status: disabled Cognitive needs: Yes (walker, leg brace, orthotic shoes,) Hearing needs: No Vision needs: No Review of Systems Const All systems reviewed & are unremarkable except as noted in HPI and below Physical Exam Vital Signs: Last Vital Signs Temp 98.0 F 12/23/24 10:07 Pulse 84 12/23/24 10:07 BP 110/68 12/23/24 10:07 Pulse Ox 97 12/23/24 10:07 Oxygen Delivery Method Room Air 12/23/24 10:07 BMI result Body Mass Index 34.7 Assessment & Plan Assessment & Plan (1) Lice infested hair: Code(s): B85.0 - Pediculosis due to Pediculus humanus capitis Plan: Patient was informed and verbally consented to the use of an ambient scribe for clinic note documentation during this visit. Pediculosis Capitis - The patient was advised to wait a few more days after the initial treatment to assess effectiveness. - A follow-up visit was recommended for Friday to evaluate the need for a second treatment, if itchy still, etc... - If symptoms persist, a prescription-strength treatment will be considered. - Patient was advised to stay home from Day Program until cleared by a medical professional to avoid spreading it. Coding Level of Care Code Est Pt Level 3 (05529) Diagnoses Lice infested hair B85.0
[2024-12-23 10:07] VITALS: BP 110/68; PULSE 84; TEMP 36.7; O2SAT 97; BMI 34.7
== END 2024-12-23 10:40 | disposition home or self-care (01) ==
PROVIDERS: PCP Physician Assistant; Visit Provider Physician Assistant
DX: B85.0 Pediculosis due to Pediculus humanus capitis (principal)

== ENCOUNTER → 2024-12-23 09:49 | Outpatient (BNVA) | payer MEDICARE, MEDICAID, SELFPAY | PROVIDERS: PCP Physician Assistant; Visit Provider Physician Assistant | DX: B85.0 Pediculosis due to Pediculus humanus capitis (principal) | CPT/HCPCS: 99212 ==

== ENCOUNTER 2024-12-23 11:06 | Outpatient (REF) | payer MEDICARE, MEDICAID, SELFPAY | END 2024-12-23 11:07 | disposition home or self-care (01) | LOC: HO.HKASLDS 11:06 | PROVIDERS: Visit Provider Physician Assistant Medical | DX: Z13.89 Encounter for screening for other disorder (principal) ==

== ENCOUNTER 2024-12-23 11:31 | Outpatient (REF) | payer MEDICARE, MEDICAID, SELFPAY ==
[2024-12-23 18:30] LABS: Magnesium 1.9 mg/dL (1.6-2.6)
[2024-12-23 18:53] LABS: Ferritin 60 ng/mL (10-250)
[2024-12-23 19:04] LABS: Folate 18.4 ng/mL (> or = 4.0); Vitamin B12 300 pg/mL (200-900)
== END 2024-12-23 11:32 | disposition home or self-care (01) ==
LOC: HO.HKASLDS 11:31
PROVIDERS: Visit Provider Physician Assistant Medical
DX: G47.19 Other hypersomnia (principal); R53.83 Other fatigue
CPT/HCPCS: 36415; 82306; 82607; 82728; 82746; 83090; 83735; 83921; 84443

== ENCOUNTER 2024-12-29 08:22 | Outpatient (AMB) | payer MEDICARE, MEDICAID, SELFPAY ==
--- NOTE | 2024-12-29 08:37 | MHC.PC.OV ---
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 There is also another service that consumer/client living in the home. Reports 1 alcoholic beverage per year on her birthday. No history of cigarette smoking except for a 2 week period years ago. No illicit drug use or marijuana. She does attend a day program but has been out of the program due to head lice. Endorses that she does try to follow a healthy diet though Chloe notes that this is not always the most balanced diet. She is not exercising, overall not very active even at the day programs. CP with mild intellectual disability- using baclofen for spasticity. bilateral AFO braces, ambulates with walker. No falls. Attends day program. Service not following with aide in the home Schizoaffective disorder bipolar type- Following with has not Psychiatry. Stable on paroxetine 50 mg daily, risperidone 2 mg twice daily, clonidine. Chloe reports mood stable overall Hypothyroidism-levothyroxine Integument- following with podiatry for hypertrophic nails. Tinea corporis/capitis managed with ketoconazole Concerns: Head lice-head lice treated at home with OTC shampoo. Seen at and nits/lice still present. Retreated. Has washed bettering etc. still has some itching as well as flaking but does have dry scalp at baseline Health Maintenance: Has been referred to GI for colo- appt 01/07 Last mammo 03/2024 with 1 year follow-up advised, no evidence of malignancy Overdue for purchasing buyer/Pap smear, asking for referral Goes for annual eye exams Dental exams twice yearly ROS: General: No fevers, malaise, unintentional weight loss HEENT: No blurred vision, diplopia. No sore throat, nasal congestion, rhinorrhea, sinus pain, ear pain. No hearing loss Neck - no adenopathy Cardiovascular: No chest pain, palpitations, or leg edema Respiratory: No shortness of breath, wheezing, cough Breast: No pain, palpable lumps, nipple inversion GI: No dysphagia, odynophagia, globus sensation. No abdominal pain, nausea, vomiting, diarrhea, constipation, melena, hematochezia : No dysuria, hematuria, increased urinary frequency, decreased urinary output. 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 No AH/VH. No SI/HI Skin: see. hpi EXAM: Constitutional - Awake and Alert, No apparent distress Eyes - PERRLA, EOMI. Anicteric Ears - external ears normal, canals clear, TMs intact and pearly perkins with good cone of light Nose- septum midline, nares clear, no sinus tenderness Mouth/throat- mucosa moist, tongue and uvula midline, no erythema/edema or tonsillar adenopathy. Neck-trachea midline, thyroid symmetric without palpable nodules, no adenopathy Cardiovascular - S1S2, RRR, No edema Respiratory - Normal lung expansion, Normal respiratory effort, No respiratory distress, CTA bilaterally Gastrointestinal - NT / ND; +BS; No rebound or guarding - No CVA tenderness Extremities - no calf tenderness bilaterally, no swelling Musculoskeletal - Normal inspection, normal ROM Skin - Warm/Dry, no concerning lesions. Nits noted in hair of the L frontal scalp and R scalp base. Mildly erythematous annular lesions on the posterior scalp and inferior to the ear. Dry flaking skin noted on the forehead Neurological - Alert & oriented x3, CN II-XII in tact, 4/5 strength bue and ble, 2+ patellar reflexes, sensation intact Psychological - Appropriate affect PFSH Medical History Vitamin D deficiency Schizophrenia Spasticity Cerebral palsy Bipolar disorder PCOS (polycystic ovarian syndrome) Hypothyroidism Family History Mother Breast cancer Father Heart attack Maternal Grandmother Breast cancer Paternal Grandmother Breast cancer Social History Housing: House Alcohol intake: current Comment: special occasions Patient Tobacco Use Status: Former Tobacco user service: No Current occupational status: disabled Cognitive needs: Yes (walker, leg brace, orthotic shoes,) Hearing needs: No Vision needs: No Questionnaire Thrive Questionnaire Date Thrive assessed: 08/25/24 RADHA-7 AMB Questionnaire RADHA-7 Date RADHA - 7 assessed: 08/25/24 Source: Developed by Drs. Pop Joshi, Yenni Jackson, Jason Smith and colleagues, with an educational joycelyn from [employer]. Physical exam (Primary Care) Vital Signs: Last Vital Signs Temp 96.9 F 12/29/24 08:49 Pulse 77 12/29/24 08:49 Resp 14 12/29/24 08:49 BP 120/70 12/29/24 08:49 Pulse Ox 97 12/29/24 08:49 Oxygen Delivery Method Room Air 12/29/24 08:49 BMI result Body Mass Index 34.7 Tobacco/Smoking Status: Tobacco use Status Tobacco use date assessed 08/25/24 12/29/24 08:42 Patient Tobacco Use Status Former Tobacco user 12/29/24 08:42 Thrive Assessment: Date of Thrive Assessment Date Thrive assessed 08/25/24 12/29/24 08:42 Coding Level of Care Code Est Pt Level 4 (91145) Est Pt Prev Care 40-64y(78013) Diagnoses Routine medical exam Z00.00 Hypothyroidism E03.9 Bipolar disorder F31.9 Lice infested hair B85.0 Spasticity R25.2 Assessment & Plan Assessment & Plan (1) Routine medical exam: Code(s): Z00.00 - Encounter for general adult medical examination without abnormal findings Plan: 54-year-old female presenting for annual physical exam. Plan as below (2) Hypothyroidism: Code(s): E03.9 - Hypothyroidism, unspecified Category: Medical Plan: Euthyroid. Continue levothyroxine (3) Bipolar disorder: Code(s): F31.9 - Bipolar disorder, unspecified Category: Medical Plan: Stable. Continue following with Psychiatry as well as counseling and continue current therapies (4) Lice infested hair: Code(s): B85.0 - Pediculosis due to Pediculus humanus capitis Category: Medical Plan: She continues to have nits but no active lice seen. Given failure of OTC therapies x2, prescribed ivermectin cream (5) Spasticity: Code(s): R25.2 - Cramp and spasm Category: Medical Plan: Continue baclofen as well as AFO devices. Utilize assistive devices. Plan Follow-up in the office in 4 months. Routine screening labs as ordered below Continue with screening mammograms, Pap smears, colonoscopies Continue following for annual skin exams and use sun protection Annual eye exams Wear seat belt in car Recommend regular exercise and healthy diet Orders: Orders Complete Blood Count Auto Diff 12/29/24 Z00.00 - Encounter for general adult medical examination without abnormal findings Lipid Panel 12/29/24 Z00.00 - Encounter for general adult medical examination without abnormal findings TSH reflex Free T4 12/29/24 Z00.00 - Encounter for general adult medical examination without abnormal findings Basic Metabolic Panel 12/29/24 Z00.00 - Encounter for general adult medical examination without abnormal findings Liver Panel 12/29/24 Z00.00 - Encounter for general adult medical examination without abnormal findings Referrals MEDICAL ANTHROPOLOGY DIRECTOR Referral Z00.00 - Encounter for general adult medical examination without abnormal findings, Z12.4 - Encounter for screening for malignant neoplasm of cervix Medications: New ivermectin 0.5% (Sklice) Apply to cover scalp entirely and hair near scalp. Let sit 10 minutes, then rinse. Do not shampoo 1 appl topical ONCE 117 grams 0RF loratadine (Claritin) 10 mg PO DAILY PRN 90 tabs 0RF allergy symptoms docusate sodium (Colace) 100 mg PO BID PRN 180 caps 0RF constipation psyllium husk (Daily Fiber (psyllium-aspartame)) 1 packet PO DAILY PRN 54 ea 0RF constipation dextromethorphan-guaifenesin 10-200 mg (Robitussin Cough-Chest Congestion DM) 1 tab-cap PO Q4-6H 90 caps 0RF cough Discontinued dextromethorphan-guaifenesin 10-200 mg (Robitussin Cough-Chest Congestion DM) Discontinued Reason: Doctor's Order 1 tab-cap PO Q6H 90 caps 0RF cough Patient Instructions: GI appt 9/19 1pm
[2024-12-29 08:49] VITALS: BP 120/70; PULSE 77; RESP 14; TEMP 36.1; O2SAT 97; BMI 34.7
== END 2024-12-29 09:31 | disposition home or self-care (01) ==
LOC: HO.HMCHD 08:23
PROVIDERS: PCP Physician Assistant; Visit Provider Physician Assistant
DX: Z00.00 Encounter for general adult medical examination without abnormal findings (principal); E03.9 Hypothyroidism, unspecified; F31.9 Bipolar disorder, unspecified; B85.0 Pediculosis due to Pediculus humanus capitis; R25.2 Cramp and spasm

== ENCOUNTER → 2024-12-29 08:22 | Outpatient (BNVA) | payer MEDICARE, MEDICAID, SELFPAY | PROVIDERS: PCP Physician Assistant; Visit Provider Physician Assistant | DX: Z00.01 Encounter for general adult medical examination with abnormal findings (principal); E03.9 Hypothyroidism, unspecified; F31.9 Bipolar disorder, unspecified; B85.0 Pediculosis due to Pediculus humanus capitis; R25.2 Cramp and spasm | CPT/HCPCS: 99212; 99396 ==

== ENCOUNTER 2025-01-11 10:18 | Outpatient (AMB) | payer MEDICARE, MEDICAID, SELFPAY ==
[2025-01-11 10:39] VITALS: BP 132/84; PULSE 97; TEMP 36.9; O2SAT 97; BMI 34.5
--- NOTE | 2025-01-11 10:39 | AM.OFFWIN_ITS ---
Intake Vital Signs 01/11/25 10:39 Height 4 ft 10 in Weight 165 lb BMI 34.5 BP 132/84 Blood Pressure Location Rt brachial Position Sitting Pulse 97 Pulse Source Pulse Oximeter Temp 98.4 F Temp Source Oral Pulse Oximetry (%) 97 Oxygen Delivery Method Room Air Intake Visit Reasons: EP Note of clearance, per PA [place] Intake Note: pt presents with need for clearance to return to day program s/p lice treatment Patient Tobacco Use Status: Former Tobacco user Allergies No Known Allergies Allergy (Verified 01/11/25 10:44) Do you need a note to return to daycare/school/sports/work: Yes HPI HPI Comments History of Present Illness Details History of Present Illness - The patient is a 54-year-old female pr esenting with head lice. - The patient reported having lice and s tayed home for a week due to the condition. - She received a prescription cream from her PCP and administered three treatments over the past week. - Initially, lice were present, but afte r the third treatment, no lice were observed. - The patient has been using a lice comb regularly and has not observed any lice since the last treatment. Physical Exam General: Cooperative, healthy appearing, comfortable, no acute distress and well developed Orientation: Patient oriented x3 Limitations: No limitations Head: Normal to inspection, no lice or eggs observed, some dry skin noted Ears: Hearing grossly normal bilaterally Nose: Normal External nose present Face and sinus: Normal facial exam Eyes: Appearance normal, both eyes and all related structures Neck: Normal visual inspection and Yes full ROM Respiratory: Normal respiratory effort and able to speak in complete sentences. Skin: No rashes or lesions noted Neuro: Patient oriented x3 Extremities: Normal to inspection Review of Systems All systems reviewed and are unremarkable except as noted in HPI PFSH Medical History Vitamin D deficiency Schizophrenia Spasticity Cerebral palsy Bipolar disorder PCOS (polycystic ovarian syndrome) Hypothyroidism Family History Mother Breast cancer Father Heart attack Maternal Grandmother Breast cancer Paternal Grandmother Breast cancer Social History Housing: House Alcohol intake: current Comment: special occasions Patient Tobacco Use Status: Former Tobacco user service: No Current occupational status: disabled Cognitive needs: Yes (walker, leg brace, orthotic shoes,) Hearing needs: No Vision needs: No Physical Exam Vital Signs: Last Vital Signs Temp 98.4 F 01/11/25 10:39 Pulse 97 01/11/25 10:39 BP 132/84 01/11/25 10:39 Pulse Ox 97 01/11/25 10:39 Oxygen Delivery Method Room Air 01/11/25 10:39 BMI result Body Mass Index 34.5 Assessment & Plan Assessment & Plan (1) Lice infested hair: Code(s): B85.0 - Pediculosis due to Pediculus humanus capitis Plan: Patient was informed and verbally consented to the use of an ambient scribe for clinic note documentation during this visit. Pediculosis Capitis (Head Lice) - Appears resolved, will write note for clearance to attend group. - No further treatment required at this time as no lice were observed. Coding Level of Care Code Est Pt Level 3 (98039) Diagnoses Lice infested hair B85.0
== END 2025-01-11 10:57 | disposition home or self-care (01) ==
PROVIDERS: PCP Physician Assistant; Visit Provider Physician Assistant
DX: B85.0 Pediculosis due to Pediculus humanus capitis (principal)

== ENCOUNTER → 2025-01-11 10:18 | Outpatient (BNVA) | payer MEDICARE, MEDICAID, SELFPAY | PROVIDERS: PCP Physician Assistant; Visit Provider Physician Assistant | DX: B85.0 Pediculosis due to Pediculus humanus capitis (principal) | CPT/HCPCS: 99212 ==